=== PATIENT | male | born 1970 | race Caucasian/White ===

== ENCOUNTER 2018-02-21 10:46 | Inpatient (IN) | payer OTHER ==
[~2018-02-21 10:46] MED LIST: ASPIR 8181 MG PO; ATORVASTATIN CA40 MG PO; BRILINTA90 MG PO; HYDROCODONE-AP1 EAC6 PO; KEFLEX500 M1 PO; LOPRESSOR25 PO; MEDROLDOSEPACK PO; NITROGLYCERIN0.4 MG SUBLING; PLAVIX 75 MG TA75 M1
[2018-02-21 12:28] VITALS: BP 122/82
--- NOTE | 2018-02-21 12:45 | NUR ---
PT IS ALERT AND ORIENTED X4. LUNGS ARE CLEAR TO DIMINISHED. NORMAL SINUS RHYTHM ON THE TIRE SPOTTER. RATES CHEST PAIN A 2-3 INTERMIENTLY DULL. UP TO BATHROOM . BOWEL SOUNDS ACTIVE X4 QUADRANTS. FAMILY AT BEDSIDE FOR SUPPORT. VITALS STABLE. PT WAS A TRANSFER FROM [facility]. CONSULTS PLACED. WILL CONTINUE TO ASSESS AND MONITOR PER NURSING.
[2018-02-21 18:17] VITALS: BP 134/73
[2018-02-21 19:12] VITALS: BP 141/71
[2018-02-21 19:25] LABS: ABSOLUTE NEUTROPHILS 6.6 thou/uL (1.4-8.2); EOSINOPHILS 3.3 % (0.0-3.0); HEMOGLOBIN 13.7 gm/dL (14.0-18.0); MCH 29.2 pg (26.0-34.0); MCHC 33.5 g/dL (28.0-37.0); MCV 87.1 fL (80.0-100.0); MONOCYTES 7.9 % (1.0-8.0); PLATELET COUNT 240 thou/uL (150-400); POLYS 63.8 % (36.0-66.0); RBC 4.71 mil/uL (4.50-6.00); RDW 12.7 % (10.5-14.5); WBC 10.3 thou/uL (4.0-11.0)
--- NOTE | 2018-02-21 19:51 | NUR ---
PT CONSENT SIGNED AND PLACED IN THE CHART. DR. GALICIA CONSULTED AND LABS AND TEST ORDERED. WILL CONTINUE TO ASSESS AND MONITOR PER NURSING.
--- NOTE | 2018-02-21 22:23 | EKG ---
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
[2018-02-22 03:08] VITALS: BP 105/66; BP 109/69
[2018-02-22 03:31] LABS: HEMATOCRIT 40.2 % (42.0-52.0); HEMOGLOBIN 13.4 gm/dL (14.0-18.0); MCH 28.8 pg (26.0-34.0); MCHC 33.2 g/dL (28.0-37.0); MCV 86.8 fL (80.0-100.0); RBC 4.63 mil/uL (4.50-6.00); RDW 12.7 % (10.5-14.5)
[2018-02-22 03:38] LABS: APTT 26.4 Seconds (24.5-32.8); PROTIME 10.8 Seconds (9.3-11.4)
[2018-02-22 03:49] LABS: ALBUMIN 3.5 g/dL (3.4-5.0); CALCIUM 8.7 mg/dL (8.5-10.1); MAGNESIUM 1.9 mg/dL (1.8-2.4); POTASSIUM 3.9 mmol/L (3.5-5.1); TOTAL BILIRUBIN 0.6 mg/dL (<0.1-1.0); TOTAL PROTEIN 6.7 g/dL (6.4-8.2)
[2018-02-22 07:20] VITALS: BP 119/75
[2018-02-22 14:54] LABS: HEMATOCRIT 23.2 % (42.0-52.0); MCH 29.6 pg (26.0-34.0); MCV 87.3 fL (80.0-100.0); RBC 2.65 mil/uL (4.50-6.00); RDW 12.5 % (10.5-14.5); WBC 18.4 thou/uL (4.0-11.0)
[2018-02-22 14:56] LABS: HEMOGLOBIN 7.9 gm/dL (14.0-18.0)
[2018-02-22 15:04] LABS: POC BE -3 mmol/L (-2.0 to +3.0); POC CA IONIZED 4.9 mg/dL (4.5-5.3); POC GLUCOSE 147 mg/dL (70-99); POC HCO3 22.4 mmol/L (22.0-26.0); POC HEMOGLOBIN 7.5 g/dL (14.0-18.0); POC POTASSIUM 3.9 mmol/L (3.5-5.1); POC SODIUM 138 mmol/L (136-145); POC pCO2 37.5 mmHg (35.0-45.0); POC pH 7.385 (7.360-7.450)
[2018-02-22 15:04] LABS: POC BE -2 mmol/L (-2.0 to +3.0); POC CA IONIZED 4.1 mg/dL (4.5-5.3); POC GLUCOSE 143 mg/dL (70-99); POC HCO3 22.9 mmol/L (22.0-26.0); POC HEMOGLOBIN 8.8 g/dL (14.0-18.0); POC POTASSIUM 4.3 mmol/L (3.5-5.1); POC SODIUM 138 mmol/L (136-145)
[2018-02-22 15:04] LABS: POC BE -2 mmol/L (-2.0 to +3.0); POC GLUCOSE 142 mg/dL (70-99); POC HCO3 23.1 mmol/L (22.0-26.0); POC HEMOGLOBIN 7.8 g/dL (14.0-18.0); POC POTASSIUM 4.3 mmol/L (3.5-5.1); POC SODIUM 138 mmol/L (136-145); POC pCO2 38.1 mmHg (35.0-45.0); POC pH 7.391 (7.360-7.450)
[2018-02-22 15:04] LABS: POC BE -2 mmol/L (-2.0 to +3.0); POC CA IONIZED 3.9 mg/dL (4.5-5.3); POC GLUCOSE 113 mg/dL (70-99); POC HCO3 22.6 mmol/L (22.0-26.0); POC HEMOGLOBIN 9.2 g/dL (14.0-18.0); POC POTASSIUM 4.3 mmol/L (3.5-5.1); POC SODIUM 136 mmol/L (136-145); POC pCO2 34.6 mmHg (35.0-45.0); POC pH 7.423 (7.360-7.450)
[2018-02-22 15:04] LABS: POC BE -1 mmol/L (-2.0 to +3.0); POC GLUCOSE 123 mg/dL (70-99); POC HCO3 23.2 mmol/L (22.0-26.0); POC HEMOGLOBIN 8.5 g/dL (14.0-18.0); POC POTASSIUM 4.9 mmol/L (3.5-5.1); POC SODIUM 137 mmol/L (136-145); POC pCO2 36.3 mmHg (35.0-45.0); POC pH 7.413 (7.360-7.450)
[2018-02-22 15:04] LABS: POC BE -1 mmol/L (-2.0 to +3.0); POC CA IONIZED 4.7 mg/dL (4.5-5.3); POC GLUCOSE 115 mg/dL (70-99); POC HCO3 23.6 mmol/L (22.0-26.0); POC HEMOGLOBIN 12.9 g/dL (14.0-18.0); POC POTASSIUM 4.5 mmol/L (3.5-5.1); POC SODIUM 137 mmol/L (136-145); POC pCO2 36.8 mmHg (35.0-45.0); POC pH 7.415 (7.360-7.450)
[2018-02-22 15:04] LABS: POC BE -2 mmol/L (-2.0 to +3.0); POC CA IONIZED 4.5 mg/dL (4.5-5.3); POC GLUCOSE 106 mg/dL (70-99); POC HCO3 22.9 mmol/L (22.0-26.0); POC HEMOGLOBIN 11.6 g/dL (14.0-18.0); POC POTASSIUM 4.3 mmol/L (3.5-5.1); POC SODIUM 138 mmol/L (136-145); POC pCO2 37.7 mmHg (35.0-45.0); POC pH 7.391 (7.360-7.450)
[2018-02-22 15:08] LABS: APTT 27.2 Seconds (24.5-32.8); FIBRINOGEN 132.6 mg/dL (210-360)
[2018-02-22 15:17] LABS: PROTIME 16.2 Seconds (9.3-11.4)
[2018-02-22 15:18] LABS: INR 1.6
[2018-02-22 15:43] LABS: POC BE -4 mmol/L (-2.0 to +3.0); POC CA IONIZED 4.5 mg/dL (4.5-5.3); POC GLUCOSE 141 mg/dL (70-99); POC HCO3 21.3 mmol/L (22.0-26.0); POC HEMOGLOBIN 9.2 g/dL (14.0-18.0); POC SODIUM 140 mmol/L (136-145); POC pCO2 37.8 mmHg (35.0-45.0); POC pH 7.358 (7.360-7.450)
[2018-02-22 16:45] LABS: HEMOGLOBIN 9.6 gm/dL (14.0-18.0); MCH 28.8 pg (26.0-34.0); MCV 87.4 fL (80.0-100.0); RBC 3.31 mil/uL (4.50-6.00); RDW 12.4 % (10.5-14.5); WBC 24.6 thou/uL (4.0-11.0)
[2018-02-22 16:47] LABS: BE(vivo) -5.6 mmol/L (-2 to +3); HCO3 21.9 mmol/L (22.0-26.0); PO2 163.1 mmHg (80.0-100.0); sO2 98.8 % (92.0-98.0)
[2018-02-22 16:48] LABS: CALCIUM 7.7 mg/dL (8.5-10.1); CREATININE 0.9 mg/dL (0.7-1.3); MAGNESIUM 2.1 mg/dL (1.8-2.4); POTASSIUM 4.5 mmol/L (3.5-5.1)
[2018-02-22 16:48] LABS: pH 7.235 (7.360-7.450)
--- NOTE | 2018-02-22 19:00 | NUR ---
Assume cares on this pt. Assessment completed. Awake and follow commands approprately, able to raised head out off pillow. Current on vent AC mode. Will notity RT to proceed with CPAP trial.
--- NOTE | 2018-02-22 19:02 | NUR ---
Patient into room 243 direct from OR. Accompanied by OR staff, anesthesia, and RT. Placed onto cardiac monitors and hemodynamic monitors. Dr. Brambila at bedside. Patient rec'd total of 4 albumins for dayshift. Weaned off propofol. Mediastinal chest tubes (2) and left pleural chest tube in place, patent, draining. Left leg harvest site wrapped with KAMILA wrap, MELODIE drain in place and draining. Pacemaker generator is off. Right IJ w/ swan intact. Remains intubated, working to awaken and wean off per protocol. Report given to oncoming nurse Ellyn. Continue to monitor.
[2018-02-22 19:16] VITALS: BP 101/57
[2018-02-22 20:06] LABS: BE(vivo) -6.8 mmol/L (-2 to +3); HCO3 18.4 mmol/L (22.0-26.0); PCO2 35.6 mmHg (35.0-45.0); PO2 150.3 mmHg (80.0-100.0); pH 7.331 (7.360-7.450); sO2 98.8 % (92.0-98.0)
--- NOTE | 2018-02-22 20:24 | HC ---
[facility] [place] [place] [address] CONSULTATION Name: JIHAN COLLIER Marely Room #: 243-P ADM IN M.R.#: [id number] Admission: 02/21/18 Attend Phys: Ashu Frye MD Discharge: Date of : 68 Report #: [id number] THIS REPORT FOR: //name// CC: Asif Frye DATE OF SERVICE: 02/21/2018 HISTORY OF PRESENT ILLNESS: We were asked to see the patient by Dr. Frye and Dr. Sandoval. The patient was transferred to [place] from [place]. The patient has a history of coronary artery disease with a stent in the proximal circumflex approximately 3 years ago. On this past Thursday, the patient had pain at rest in bed. This was substernal discomfort radiating to the left shoulder area happening at night and there were some antecedent symptoms over the last 3 months with some exertional dyspnea and shortness of breath. The patient had some mild diaphoresis and shortness of breath when the acute pain happened on Thursday. Initial troponin was unremarkable. Cardiac catheterization done at [place] shows severe 3-vessel disease with a 90% proximal LAD lesion and a 90% lesion prior to a second marginal and occlusion of the distal right coronary, proximal to the PDA with the PDA being filled by collaterals. Left ventricular function appears satisfactory, however. PAST MEDICAL HISTORY: The patient denies other medical problems. No history of diabetes. He does have hypertension and hyperlipidemia, treated medically. The patient is a former smoker who quit approximately 3 years ago after his stent placement. FAMILY HISTORY: Positive for coronary artery disease with father having multiple heart attacks and mother dying of congestive heart failure. SOCIAL HISTORY: Alcohol, occasional. 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 REVIEW OF SYSTEMS: CONSTITUTIONAL: No fever or chills. No change in appetite. Has had variable hours at work that have upset his dire, no schedule with that. HEENT: Eyes: Wears glasses. No congestion, no headache, no sore throat. PULMONARY: No shortness of breath, no sputum production. CARDIAC: As mentioned, chest pain, no peripheral edema. GASTROINTESTINAL: No nausea, vomiting, diarrhea, or blood loss. GENITOURINARY: No dysuria or blood loss. MUSCULOSKELETAL: No bone pain. No muscle pain. SKIN: No rash, no infection. PSYCHIATRIC: No depression, no anxiety. [facility] [address] [facility] [place] [address] CONSULTATION Name: JIHAN COLLIER Room #: 243-P [facility] IN .R.#: [id number] Admission: 02/21/18 Attend Phys: Ashu Frye MD Discharge: Date of : 68 Report #: [id number] ENDOCRINE: Denies diabetes. No significant weight change. LYMPHATICS: No easy bruisability or bleeding issues. PHYSICAL EXAMINATION: VITAL SIGNS: Temperature 36.4, heart rate 60, blood pressure 122/82, O2 sat not measured, no oxygen is being given, respiratory rate 17. No obvious pulmonary dysfunction. HEENT: No scleral icterus. No arcus. Positive ear crease sign bilaterally. No oral injection. NECK: No mass, no bruit. CHEST: Clear. HEART: Rhythm is regular. No murmurs. ABDOMEN: Soft, somewhat protuberant, no masses. EXTREMITIES: No clubbing, cyanosis or edema. No obvious saphenous vein problems. Pulses: 2+ popliteal pulses bilaterally. SKIN: No rash, no infection. MUSCULOSKELETAL: The limbs are symmetric with no obvious deformity or abnormality. NEUROLOGIC: Grossly normal. PSYCHIATRIC: Shows insight into problem and is appropriate with normal affect and mood. IMPRESSION: The patient has important coronary artery disease. I have recommended coronary artery bypass. Risks and details of this were discussed. This includes but is not limited to bleeding, infection, anesthesia risks, heart and lung problems, stroke, and . Options and alternatives were reviewed. I have discussed the blood thinning issue with the patient. The [facility] chart does mention Plavix, but it is not clear when this was started nor when this was stopped and I am not sure that a platelet function test has been ordered. I will endeavor to answer these questions. Thank you for the consult. <ELECTRONICALLY SIGNED> By: Giovanni Brambila MD 02/22/182023 1726 02 Giovanni Brambila MD /nt
[2018-02-22 20:36] LABS: BE(vivo) -7.9 mmol/L (-2 to +3); HCO3 17.4 mmol/L (22.0-26.0); PCO2 34.4 mmHg (35.0-45.0); PO2 141.5 mmHg (80.0-100.0); sO2 98.7 % (92.0-98.0)
[2018-02-22 20:37] LABS: pH 7.321 (7.360-7.450)
--- NOTE | 2018-02-22 20:45 | NUR ---
Pt is on CPAP trial atleast 30 mins. ABG obtained, gave order to extubate pt. Pt was extubated by RT, followed with orally suctions and placed him on 40% of oxygen via FS. ETT/NGT are intacts. Voice returned, lung sound Dim t/o otherwise no s/sx of any stridor indicates. Will get another ABG in 30 mins post extubation.
[2018-02-22 20:46] LABS: CALCIUM 7.9 mg/dL (8.5-10.1); POTASSIUM 4.6 mmol/L (3.5-5.1)
[2018-02-22 21:32] LABS: BE(vivo) -6.9 mmol/L (-2 to +3); PCO2 33.7 mmHg (35.0-45.0); PO2 94.6 mmHg (80.0-100.0); pH 7.346 (7.360-7.450)
[2018-02-23 01:07] LABS: GLYCOHEMOGLOBIN (HGB A1C) 6.4 % (4.8-5.6)
--- NOTE | 2018-02-23 05:26 | NUR ---
CVP WAVE FORMS ISN'S APPROPRIATED AND UNABLE TO FLUSH.
[2018-02-23 05:57] LABS: HEMATOCRIT 25.1 % (42.0-52.0); HEMOGLOBIN 8.4 gm/dL (14.0-18.0); MCH 29.3 pg (26.0-34.0); MCHC 33.3 g/dL (28.0-37.0); MCV 88.1 fL (80.0-100.0); RBC 2.85 mil/uL (4.50-6.00); RDW 12.7 % (10.5-14.5); WBC 12.7 thou/uL (4.0-11.0)
[2018-02-23 06:07] LABS: POTASSIUM 3.9 mmol/L (3.5-5.1)
[2018-02-23 06:10] VITALS: BP 106/64
--- NOTE | 2018-02-23 07:00 | NUR ---
Pt is continue to progress toward goals. Up in chair this morning ; tristian activity well. Pain control has been slightly better with alternating of Citronelle and Fentanyl IV. Tristian clear liquid diet. Insulin gtt per protocol,hourly finger stick obtained: see flow sheet for gtt titration. Carmichael lance, A-line,CTx3 ,MELODIE drain,epicardial pacer and martins remain intacs and continue to function properly. Report hand off to am shift RN.
[2018-02-23 08:00] VITALS: BP 106/64
--- NOTE | 2018-02-23 10:03 | EKG ---
[place] [address] 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: Clyde BERMUDEZ : 1970 Requested By: Giovanni Brambila Order Number: [id number] MD: Maury Meehan Measurements Intervals [place] Rate: 88 P: 58 VA: 142 QRS: 2 QRSD: 100 T: 96 QT: 399 QTc: 483 Interpretive Statements Sinus rhythm Early R-wave progression Compared to ECG 02/21/2018 14:22:44 No significant change was found Electronically Signed On 02-23-2018 10:03:28 SENIOR SOFTWARE ENGINEER by Maury Meehan [email or web address] <ELECTRONICALLY SIGNED> By: Maury Meehan MD, [facility] 02/23/18 1003 26 26 Maury Meehan MD, [facility] /EPI
--- NOTE | 2018-02-23 10:16 | EKG ---
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1970 Requested By: Giovanni Brambila Order Number: [id number] MD: Maury Meehan Measurements Intervals [place] Rate: 90 P: 43 CO: 138 QRS: -18 QRSD: 100 T: 33 QT: 392 QTc: 480 Interpretive Statements Sinus rhythm Borderline left axis deviation Abnormal R-wave progression, early transition Borderline ST elevation, anterolateral leads Borderline prolonged QT interval Compared to ECG 02/21/2018 14:22:44 ST (T wave) deviation now present Electronically Signed On 02-23-2018 10:16:40 AIRCRAFT LOAD CONTROLLER by Maury Meehan [email or web address] <ELECTRONICALLY SIGNED> By: Maury Meehan MD, [facility] 02/23/18 1016 0704 0704 Maury Meehan MD, [facility] /EPI
[2018-02-23 17:40] VITALS: BP 153/81
--- NOTE | 2018-02-23 18:19 | NUR ---
End of shift note. pt progressing towards goals. VSS. MS chest tubes out, pacer wires wrapped. Tolorating diet. Wants to keep martins in right now. LLE wounds covered, obi in place.
[2018-02-24 04:25] LABS: BE(vivo) -0.3 mmol/L (-2 to +3); HCO3 24.6 mmol/L (22.0-26.0); PCO2 41.5 mmHg (35.0-45.0); PO2 75.7 mmHg (80.0-100.0); pH 7.391 (7.360-7.450); sO2 95.1 % (92.0-98.0)
[2018-02-24 04:56] LABS: CALCIUM 8.2 mg/dL (8.5-10.1); POTASSIUM 3.9 mmol/L (3.5-5.1)
[2018-02-24 05:06] LABS: HEMATOCRIT 22.1 % (42.0-52.0); HEMOGLOBIN 7.7 gm/dL (14.0-18.0); MCH 30.6 pg (26.0-34.0); MCHC 34.7 g/dL (28.0-37.0); MCV 88.1 fL (80.0-100.0); RBC 2.51 mil/uL (4.50-6.00); RDW 12.8 % (10.5-14.5)
--- NOTE | 2018-02-24 07:19 | NUR ---
ASSUMED CARE OF PT AT 1900. PT ALERT AND ORIENTED X4. ABLE TO AMBULATE X2 ASSIST TO CHAIR. PT C/O OF LEFT CHEST PAIN R/T PLEURAL CHEST TUBE. SR ON THE MONITOR. VSS. PT REMAINS ON 2L NC. ATTEMPTED TO WEAN PT DOWN, BUT PT DESATS INTO UPPER 80s. ADEQUATE UO. NO BM. PT TOLERATING DIET. PT MAKING PROGRESS TOWARDS GOALS.
--- NOTE | 2018-02-24 08:49 | NUR ---
Post OP day 2 cabg x 4. Received order for diet education. Will follow up once transferred out of ICU in next 1-2 days for diet education needs.
--- NOTE | 2018-02-24 10:06 | NUR ---
CM ASSESSMENT: CASE OPENED FOR DC PLANNING. CLINICAL INFO REVIEWED. PT ADMITTED FROM [facility] AFTER CARDIAC CATH WITH RECOMMENDATION FOR CABG. PT IS POD #2 CABG X4. LIVES IN HOUSE WITH SPOUSE IN [place], [place]. 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 EXPECT WILL BE ABLE TO DISCHARGE TO HOME WHEN MEDICALLY STABLE. CM AVAILABLE TO ASSIST WITH DC PLANS NEEDED.
[2018-02-24 10:33] VITALS: BP 107/65
--- NOTE | 2018-02-24 18:19 | NUR ---
TRANSFERED TO FLOOR VIA . ALL BELONGINS WITH PT. REPORT CALLED.
--- NOTE | 2018-02-24 19:17 | NUR ---
ASSUMED PATIENT CARE AROUND 1820. PATIENT SETTLED INTO BED, ROOM AIR. ACCOUNTING SYSTEM EXPERT IN PLACE.
[2018-02-25 00:40] VITALS: BP 121/64
[2018-02-25 04:31] VITALS: BP 131/66
--- NOTE | 2018-02-25 05:41 | NUR ---
ASSESSMENT CHARGED; PT. C/O PAIN AROUND MIDNIGHT; PAIN MEDICATION GIVEN PER ORDERS; SOB, O2 BY NS APPLIED; ABLE TO REST MOST AFTER MIDNIGHT; VS STABLE; CONTINUE TO FOLLOW PLAN OF CARE.
[2018-02-25 07:15] VITALS: BP 108/65
--- NOTE | 2018-02-25 10:46 | HC ---
[facility] [place] [place] [address] CONSULTATION Name: JIHAN COLLIER Room #: 201-P ADM IN M.R.#: [id number] Admission: 02/21/18 Attend Phys: Ashu Frye MD Discharge: Date of : 68 Report #: [id number] THIS REPORT FOR: //name// CC: Asif Frye DATE OF SERVICE: 02/22/2018 HISTORY OF PRESENT ILLNESS: The patient is a 47-year-old white male who I was asked to see in the hospital today after he was transferred to [facility] for consideration of coronary artery bypass surgery. The patient initially presented in 01/2015 with chest pain. He was admitted to [facility], ruled in for non-STEMI. He underwent a cardiac catheterization by Dr. Sandoval at that time and was found to have a 60% mid LAD stenosis. The circumflex was subtotally occluded. The right coronary artery was chronically occluded, filled by collaterals. I then performed angioplasty and placed a drug-eluting stent in the proximal circumflex artery. He has actually done fairly well since that time. However, recently he has had recurrent chest pain, shortness of breath. He finally went to [place] on 02/19/2018. He underwent repeat cardiac catheterization by Dr. Sandoval. Ejection fraction was 60% with inferior hypokinesis. He was found to have 90% stenosis of the proximal LAD, stent was patent to the circumflex although there was a 90% narrowing at the takeoff of a large marginal branch and the right coronary was chronically occluded. He was felt to have multivessel coronary artery disease and was transferred yesterday to [facility] for consideration of coronary artery bypass surgery. He has had no recurrent chest pain, shortness of breath since that time. He denied any recent palpitations, fever, syncope, bleeding. PAST MEDICAL HISTORY: Significant for tonsillectomy. He has a history of hyperlipidemia. MEDICATIONS: Include Lipitor, Lopressor, aspirin. FAMILY HISTORY: Positive for heart disease. SOCIAL HISTORY: He is . He and his live in [place]. 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 He quit smoking 3 years ago. No alcohol abuse. REVIEW OF SYSTEMS: He does snore at night. No history of stroke, asthma, peptic ulcer disease, kidney disease or cancer. He does have psoriasis. PHYSICAL EXAMINATION: GENERAL: Revealed a middle-aged male, who appeared in no distress. VITAL SIGNS: He had a blood pressure of 140/70, pulse is 80s, afebrile. HEENT: He is anicteric. Conjunctivae pink. Mucous membranes moist. [address] [address] CONSULTATION Name: JIHAN COLLIER Room #: 201-P ADM IN M.R.#: [id number] Admission: 02/21/18 Attend Phys: Ashu Frye MD Discharge: Date of : 68 Report #: [id number] NECK: Veins do not appear distended. No carotid bruits. Neck supple. CHEST: Clear to auscultation. CARDIAC: Regular rate and rhythm. ABDOMEN: Soft. EXTREMITIES: Had no edema. Posterior tibial pulse 1+ bilaterally. SKIN: Warm, dry. NEUROLOGIC: Nonfocal. LYMPH: No adenopathy. MUSCULOSKELETAL: No joint effusion. DIAGNOSTIC DATA: Rhythm strip of his ECG shows a normal sinus rhythm. He had carotid Doppler study performed at [place] prior to his transfer that showed mild plaquing, but no high grade stenosis. His chest x-ray showed cardiomegaly, otherwise clear lung rush. LABORATORY DATA: Sodium 140, creatinine 0.9, glucose 114. Liver function studies were normal. Troponin river to 0.12. Cholesterol 97, triglyceride 107, HDL 30, LDL 46. White blood cell count 7.7, hemoglobin 13.7. IMPRESSION AND RECOMMENDATIONS: 1. Coronary artery disease. Recommend coronary artery bypass surgery. 2. Previous myocardial infarction. 3. Psoriasis. 4. Previous tobacco abuse. 5. Carotid plaque. <ELECTRONICALLY SIGNED> By: Gilmer White MD, FACC 02/25/18 1046 0723 0106 Gilmer White MD, FACC /nt
[2018-02-25 11:05] VITALS: BP 109/59
--- NOTE | 2018-02-25 12:48 | O ---
[facility] [place] [place] [address] OPERATIVE REPORT Name: JIHAN COLLIER Marely Room #: 201-P ADM IN M.R.#: [id number] Admission: 02/21/18 Attend Phys: Ashu Frye MD Discharge: Date of : 68 Report #: [id number] THIS REPORT FOR: //name// CC: Asif Frye DATE OF SERVICE: 02/22/2018 PREOPERATIVE DIAGNOSIS: Coronary artery disease. POSTOPERATIVE DIAGNOSIS: Coronary artery disease. OPERATION: Coronary artery bypass x 4 including left internal mammary artery to left anterior descending artery, saphenous vein to diagonal and marginal arteries, and saphenous vein to posterior descending artery and endoscopic harvest, left greater saphenous vein. SURGEON: Giovanni Brambila M.D. PRECAST CONCRETE IRONWORKER: HEIDE Manzo. INDICATION: The patient is a 47-year-old with coronary artery disease. The patient presented with unstable angina including rest pain. The patient has a history of coronary artery disease with a stent in the proximal circumflex, approximately 3 years ago. The patient had been doing well until relatively recently when he began to have some shortness of breath with exertion, culminating in the rest pain that brought him to the hospital on Thursday. Cardiac catheterization demonstrated severe 3-vessel coronary artery disease including total occlusion of the mid right coronary artery, high grade proximal LAD stenosis threatening a large diagonal and high grade stenosis in the second marginal of the circumflex. Left ventricular function is satisfactory. DICTATION ENDS HERE. <ELECTRONICALLY SIGNED> By: Giovanni Brambila MD 02/25/18 1248 1547 1859 Giovanni Brambila MD /nt
[2018-02-25 15:30] VITALS: BP 118/67
--- NOTE | 2018-02-25 17:40 | NUR ---
ASSESSMENT DOCUMENTED. PT ALERT AND ORIENTED. RECEIVED PRN PAIN MED FOR STERNUM PAIN WITH PARTIAL RELIEF. AMBUALTED X4 THIS SHIFT. SURGICAL DRESSSING ON THE STERNUM AND LEG CHANGED TODAY. MELODIE DRAIN D/C. NO CONCERNS AT THIS TIME. PROGRESSING WELL TOWARD DISCHARGE GOAL. WILL CONTINUE TO MONITOR.
[2018-02-25 19:08] VITALS: BP 125/61
[2018-02-26 04:29] VITALS: BP 118/69
--- NOTE | 2018-02-26 05:41 | NUR ---
PT. C/O PAIN EARLY ON THE PRN PAIN MEDICATION GIVEN; ABLE TO REST MOST OF THE NIGHT; NO BM; PASSING GAS.
[2018-02-26 06:07] LABS: HEMOGLOBIN 6.8 gm/dL (14.0-18.0)
[2018-02-26 06:09] LABS: MCH 30.6 pg (26.0-34.0); MCHC 34.6 g/dL (28.0-37.0); MCV 88.4 fL (80.0-100.0); RBC 2.23 mil/uL (4.50-6.00); RDW 12.6 % (10.5-14.5); WBC 10.3 thou/uL (4.0-11.0)
[2018-02-26 06:13] LABS: HEMATOCRIT 19.7 % (42.0-52.0)
[2018-02-26 06:25] LABS: CALCIUM 8.2 mg/dL (8.5-10.1); CREATININE 0.9 mg/dL (0.7-1.3); POTASSIUM 3.5 mmol/L (3.5-5.1)
[2018-02-26 07:05] VITALS: BP 116/65
--- NOTE | 2018-02-26 07:22 | NUR ---
PT STABLE. HGB NOTED AT 6.8 WITH HCT AT 19.17. JEWEL SAWYER UPDATD. I UNIT OF PRBC ORDERED TO BE TRANSFUSED TODAY. VITALS STABLE. NO CHANGES NOTED IN PT'S STATUS. WILL CONITNUE TO MONITOR AND FOLLOW WITH POC
--- NOTE | 2018-02-26 08:19 | EKG ---
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1970 Requested By: Giovanni Brambila Order Number: [id number] MD: Maury Meehan Measurements Intervals [place] Rate: 69 P: 62 [place]: 151 QRS: -13 QRSD: 110 T: 90 QT: 471 QTc: 505 Interpretive Statements Sinus rhythm Early R-wave progression Nonspecific ST and T wave abnormality Compared to ECG 02/23/2018 07:04:58 Low QRS voltage now present Electronically Signed On 02-26-2018 8:19:49 SAP BASIS by Maury Meehan [email or web address] <ELECTRONICALLY SIGNED> By: Maury Meehan MD, [facility] 02/26/18818 9 Maury Meehan MD, [facility] /EPI
[2018-02-26 09:42] VITALS: BP 119/68; BP 121/72
--- NOTE | 2018-02-26 10:46 | NUR ---
Diet education completed with pt and family.
[2018-02-26 11:00] VITALS: BP 117/64
--- NOTE | 2018-02-26 11:02 | O ---
[facility] [place] [address] OPERATIVE REPORT Name: JIHAN COLLIER Marely Room #: 201-P ADM IN M.R.#: [id number] Admission: 02/21/18 Attend Phys: Ashu Frye MD Discharge: Date of : 68 Report #: [id number] THIS REPORT FOR: //name// CC: Asif Frye DATE OF SERVICE: 02/22/2018 PREOPERATIVE DIAGNOSIS: Coronary artery disease. POSTOPERATIVE DIAGNOSIS: Coronary artery disease. OPERATION: Coronary artery bypass x 4 including left internal mammary artery to left anterior descending artery, saphenous vein to diagonal and marginal arteries and saphenous vein to posterior descending artery and endoscopic harvest, left greater saphenous vein. SURGEON: Giovanni Brambila M.D. RECONSTRUCTIVE DENTIST: HEIDE Manzo. INDICATION: The patient is a 47-year-old with coronary artery disease. The patient presented with unstable angina including rest pain. The patient has a history of coronary artery disease with a stent in the proximal circumflex approximately 3 years ago. The patient had been doing well until relatively recently when he began to have some shortness of breath with exertion, culminating in the rest pain that brought him to the hospital on Thursday. Cardiac catheterization demonstrated severe 3-vessel coronary artery disease including total occlusion of the mid right coronary artery, high grade proximal LAD stenosis threatening a large diagonal and high-grade stenosis in the second marginal of the circumflex. Left ventricular function is satisfactory. This dictation is done because previous dictation ended precipitously. FINDINGS AND TECHNIQUE: After general anesthesia was established, saphenous vein was harvested using an endoscopic approach and prepared for use as a conduit. The upper portion of the vein was harvested in an open fashion due to multiple branches. Exposure was obtained through median sternotomy. Left internal mammary artery was harvested from chest wall. Pericardial well was made. Cannulation sutures were placed. Heparin was given. Aorta was cannulated. Right atrium was cannulated. Cardioplegia needle was positioned in the aortic root. Retrograde cardioplegia catheter was placed in coronary sinus. Cardiopulmonary bypass was established. The aorta was cross clamped. Antegrade and retrograde [facility] [address] [place] [address] OPERATIVE REPORT Name: JIHAN COLLIER Room #: 201-P [facility] [place] ..#: [id number] Admission: 02/21/18 Attend Phys: Ashu Frye MD Discharge: Date of : 68 Report #: [id number] cardioplegia were given. Ice was poured into the pericardial well. The heart was stopped. During electromechanical arrest, the distal anastomoses were performed. An end-to-side anastomosis was made between vein and the posterior descending artery. Cold cardioplegia was given. A separate segment of vein was sewn in end-to-side fashion to the second marginal artery. Cold cardioplegia was given. The same segment of vein was sewn in [id number] fashion to the large diagonal artery. Cold cardioplegia was given. Left internal mammary artery was then sewn to the left anterior descending artery. This anastomosis was checked with the temperature technique. Cold cardioplegia was given. Two proximal anastomoses were performed. When these were complete, warm retrograde cardioplegia was given followed by warm continuous blood to the coronary sinus. When this infusion was complete, the crossclamp was removed. De-airing maneuvers were performed. The anastomoses were inspected and found to be satisfactory. As the patient warmed, nice cardiac activity resumed. Chest tubes and pacing wires were placed. A marker was placed around the proximal anastomoses. When the patient was warm, he was weaned from cardiopulmonary bypass. Venous cannula was removed. Protamine was given. The aortic cannula was removed. Flows were measured in the bypass grafts. When this infusion was complete, the cross clamp was removed. De-airing maneuvers were performed. Flow was established through the bypass grafts. The anastomoses were inspected and found to be satisfactory. As the patient warmed, nice cardiac activity resumed. Chest tubes and pacing wires were placed. A marker was placed around the proximal anastomoses. When the patient was warm, he was weaned from cardiopulmonary bypass. Venous cannula was removed. Protamine was given. The aortic cannula was removed. Flows were measured in the bypass grafts. When hemostasis was satisfactory, the chest was closed in the usual fashion. The patient was taken to the Intensive Care Unit in satisfactory condition. All counts were reported as correct. <ELECTRONICALLY SIGNED> By: Giovanni Brambila MD 02/26/18 [id number] Giovanni Brambila MD /nt
[2018-02-26 16:00] VITALS: BP 115/72
--- NOTE | 2018-02-26 17:13 | NUR ---
ASSESSMENT DOCUMENTED. VSS. NSR ON TELI. NO CARDIAC OR RESPITORY DISTRESS NOTED. RECEIVED 1 PACK OF RBC. NO ADVERSE REACTION NOTED. RECEIVED PRN PAIN MED FOR STERNUM PAIN WITH PARTIAL RELIEF. PT REPORT PAIN WITH MOVEMENT. AMBULATED X3 THIS SHIFT. ONE TIME IV LASIX GIVEN. NO CONCERNS AT THIS TIME. PT PROGRESSING WELL TOWARD DISCHARGE GOAL.
[2018-02-26 19:21] VITALS: BP 118/59
[2018-02-27 04:44] VITALS: BP 107/53
--- NOTE | 2018-02-27 05:20 | NUR ---
ASSUMED PT CARE AT 1900 WITH NO SIGN OF DISTRESS NOTED IN PT. PT IS STABLE AND SITTING IN CHAIR. PT IS ALERT AND ORIENTED, DENIES ANY NEED AT THIS TIME, PT IS STABLE POST CABG PROCEDURE. SCHEDULED MED ADMINISTERED TO PT. PAIN MED ADMINISTERED TO PT. VITAL SIGNS STABLE, DENIES ANY NEED AT THIS TIME. PT SLEEPS DURING THE NIGHT.
[2018-02-27 07:15] VITALS: BP 120/69
[2018-02-27 08:00] VITALS: BP 111/60
[2018-02-27 09:55] LABS: ABSOLUTE NEUTROPHILS 7.4 thou/uL (1.4-8.2); BASOPHILS 0.8 % (0.0-2.0); EOSINOPHILS 1.8 % (0.0-3.0); HEMATOCRIT 24.9 % (42.0-52.0); HEMOGLOBIN 8.7 gm/dL (14.0-18.0); LYMPHOCYTES 13.6 % (24.0-44.0); MCH 30.9 pg (26.0-34.0); MCHC 35.1 g/dL (28.0-37.0); MCV 88.1 fL (80.0-100.0); MONOCYTES 8.1 % (1.0-8.0); PLATELET COUNT 217 thou/uL (150-400); POLYS 75.7 % (36.0-66.0); RBC 2.82 mil/uL (4.50-6.00); RDW 13.1 % (10.5-14.5); WBC 9.7 thou/uL (4.0-11.0)
[2018-02-27 10:02] LABS: CALCIUM 8.5 mg/dL (8.5-10.1); POTASSIUM 3.9 mmol/L (3.5-5.1)
[2018-02-27] MEDS ORDERED: HYDROCODONE-AP1 EAC6 PO (10:38)
[2018-02-27 11:22] VITALS: BP 120/69
[2018-02-27 11:40] VITALS: BP 107/57
--- NOTE | 2018-02-27 14:19 | NUR ---
ASSESSMENT DOCUMENTED. PT ALERT AND ORIENTED. RECEIVED PRN PAIN MED WITH PARTIAL RELIEF. WOUND DRESSING CHANGED. PT SEEN BY DR. SANTOS AND DR. GALICIA. ORDERS GIVEN TO DISCHARGE PT TO HOME. DISCHARGE INSTRUCTIONS GIVEN TO PT. PT VERBERLIZE UNDERSTANDING. PT LEFT THE FACILITY ACCOMPANIED BY THE .
== END 2018-02-27 13:20 | disposition home or self-care (01) | DRG 235 ==
LOC: 2N 10:46 → TBA 12:13 → 2N 12:13 → TBA 02-22 10:29 → ICU 02-22 15:50 → 2N 02-24 18:58
PROVIDERS: Hospitalist; Surgery Vascular Surgery; ADMIT Internal Medicine
PROC: 06BQ4ZZ Excision of Left Saphenous Vein, Percutaneous Endoscopic Approach (ICD-10-PCS; principal; 2018-02-22)
PROC: 021209W Bypass Coronary Artery, Three Arteries from Aorta with Autologous Venous Tissue, Open Approach (ICD-10-PCS; principal; 2018-02-22)
PROC: 5A1221Z Performance of Cardiac Output, Continuous (ICD-10-PCS; principal; 2018-02-22)
PROC: 02100Z9 Bypass Coronary Artery, One Artery from Left Internal Mammary, Open Approach (ICD-10-PCS; principal; 2018-02-22)
PROC: 30233N1 Transfusion of Nonautologous Red Blood Cells into Peripheral Vein, Percutaneous Approach (ICD-10-PCS; 2018-02-26)
DX: I25.10 Atherosclerotic heart disease of native coronary artery without angina pectoris (principal); G92 Toxic encephalopathy; I10 Essential (primary) hypertension; L40.9 Psoriasis, unspecified; E78.5 Hyperlipidemia, unspecified; E66.9 Obesity, unspecified; I65.29 Occlusion and stenosis of unspecified carotid artery; Z95.5 Presence of coronary angioplasty implant and graft; Z87.891 Personal history of nicotine dependence; Z82.49 Family history of ischemic heart disease and other diseases of the circulatory system; I25.2 Old myocardial infarction; Z79.82 Long term (current) use of aspirin; Z79.899 Other long term (current) drug therapy; Z28.21 Immunization not carried out because of patient refusal
CPT/HCPCS: 10078; 10081; 10797; 47000; 47001; 47002; 47297; 48888; 50010; 50249; 50409; 50456; 50498; 50668; 51301; 52131; 52259; 52314; 53327; 53358; 54118; 56524; 56525; 56526; 56527; 56528; 56531; 56534; 56668; 56760; 56898; 57093; 62110; 62950; 65020; 65047; 65090; 65120; 83006